=== PATIENT | male | born 1995 | race Caucasian/White ===

== ENCOUNTER 2022-07-25 15:47 | Outpatient (REF) | payer MEDICAID, SELFPAY ==
[2022-07-25 16:16] LABS: Abs Immature Grans 0.03 10^3/uL (0.0-0.06); Absolute Basophil Count 0.06 10^3/uL (0.0-0.2); Absolute Monocyte Count 0.59 10^3/uL (0.1-0.8); Absolute Neutrophil Count 4.87 10^3/uL (1.2-6.7); Basophils % 0.7; Eosinophils % 2.4; Immature Grans % 0.4; Lymphocytes % 31.1; MCHC 34.8 % (32.0-36.0); MCV 89 fL (80-95); Monocytes % 7.1; Neutrophils % 58.3; Platelet Count 281 10^3/uL (130-400); RBC 5.16 10^6/uL (4.36-5.78); RDW 11.3 % (11.8-14.1); RDW-SD 36.6 fL; WBC 8.35 10^3/uL (4.4-10.8)
[2022-07-25 16:43] LABS: ALT 44 U/L (16-63); AST 23 U/L (15-37); Albumin 4.2 g/dL (3.4-5.0); Alkaline Phosphatase 50 U/L (46-116); Anion Gap 9.5 mmol/L (3-11); BUN 14 mg/dL (7-18); Bilirubin, Total 0.4 mg/dL (0.2-1.0); CO2 27.5 mmol/L (21.0-32.0); CREATININE 1.1 mg/dL (0.70-1.30); Calcium 9.4 mg/dL (8.5-10.1); Calculated LDL 127 mg/dL (<100); Chloride 103 mmol/L (98-107); Cholesterol 202 mg/dL (<200); Estimated GFR 93.19 (mL/min/1.73m2); Glucose 98 mg/dL (74-106); HDL Cholesterol 50 mg/dL (40-60); Potassium 4.3 mmol/L (3.5-5.1); Sodium 140 mmol/L (136-145); TSH (W/Ref FT4) 0.84 uIU/mL (0.36-3.74); Total Protein 7.3 g/dL (6.4-8.2); Triglyceride 125 mg/dL (<150)
[2022-07-25 16:47] LABS: Hemoglobin A1C 5.2 % (<5.7)
[2022-07-27 09:41] LABS: HIV-1/2 Ag & Ab Screen Negative (Negative)
[2022-07-27 12:13] LABS: Chlamydia Result Negative (Negative); GC Result Negative (Negative)
[2022-07-29 09:25] LABS: Hepatitis C Ab w Rflx HCV PCR Negative (Negative)
[2022-07-29 10:37] LABS: HBs Antibody, Quant 135.6 mIU/mL (See Note); Hepatitis B Surface Ab Positive (See Note)
[2022-07-29 10:44] LABS: HSV Type 1 Ab, IgG Positive (Negative); HSV Type 2 Ab, IgG Negative (Negative)
[2022-07-29 11:16] LABS: Hep B Core Antibody Negative (Negative)
[2022-07-29 11:59] LABS: Syphilis Serology (RPR) Negative (Negative)
== END 2022-07-25 15:48 | disposition home or self-care (01) ==
LOC: LBN 15:47
PROVIDERS: Visit Provider Nurse Practitioner Family
DX: K21.9 Gastro-esophageal reflux disease without esophagitis (principal); F41.8 Other specified anxiety disorders; F20.9 Schizophrenia, unspecified; F31.9 Bipolar disorder, unspecified; J45.998 Other asthma
CPT/HCPCS: 80053; 80061; 86704; 86706; 86803; 87389; 87491; 87591; 83036; 84443; 85025; 86592; 86695; 86696